=== PATIENT | male | born 1980 | race Hispanic/Latino ===

== ENCOUNTER 2024-03-07 17:00 | Outpatient (RCR) | payer BC | END 2024-03-10 | LOC: PT 17:00 | PROVIDERS: ATTEND Student in an Organized Health Care Education/Training Program | DX: M51.86 Other intervertebral disc disorders, lumbar region (principal); M62.81 Muscle weakness (generalized); M54.51 Vertebrogenic low back pain ==

== ENCOUNTER 2024-03-27 17:00 | Outpatient (RCR) | payer BC | END 2024-04-09 | LOC: PT 17:00 | PROVIDERS: ATTEND Student in an Organized Health Care Education/Training Program | DX: M51.86 Other intervertebral disc disorders, lumbar region (principal); M62.81 Muscle weakness (generalized) ==